=== PATIENT | female | born 1995 | race Caucasian/White ===

== ENCOUNTER → 2020-07-26 | Outpatient (CLI) | payer BC ==
[2020-07-26 17:33] LABS: CLUE CELLS NOT OBSERVED (Not Observd)
== END ==
LOC: LAB 17:23
PROVIDERS: Physician Assistant
DX: Z20.2 Contact with and (suspected) exposure to infections with a predominantly sexual mode of transmission (principal)
CPT/HCPCS: Q0111

== ENCOUNTER 2020-11-05 13:01 | Emergency (ER) | payer SELFPAY ==
[2020-11-05] MEDS ORDERED: NORCO 325 MG-51 TA1 PO (13:41)
[2020-11-05] MEDS ORDERED: ZOFRAN ODT4 MG PO (13:41)
[2020-11-05] MEDS ORDERED: MUCINEX 60600 MG/TA1 PO (13:41)
[2020-11-05 14:42] VITALS: BP 122/84
== END 2020-11-05 14:11 | disposition home or self-care (01) ==
LOC: ED 13:01
DX: J06.9 Acute upper respiratory infection, unspecified (principal); F17.210 Nicotine dependence, cigarettes, uncomplicated

== ENCOUNTER → 2021-02-01 | Outpatient (CLI) | payer OTHER ==
[~2021-02-01] MED LIST: MUCINEX 60600 MG/TA1 PO; NORCO 325 MG-51 TA1 PO; ZOFRAN ODT4 MG PO
[2021-02-01 10:19] LABS: EOS # 0.1 (0.04-0.40); EOS % 1.1 % (1.0-5.0); HEMATOCRIT 45.7 % (37.0-47.0); HEMOGLOBIN 14.9 g/dL (12.5-16.0); LYMPH# 2.3 (1.50-4.00); MEAN CELL VOLUME 93 fl (78-100); MEAN CORPUSCULAR HEMOGLOBIN 30 pg (27-31); MEAN CORPUSCULAR HGB CONC 33 g/dL (33-37); MEAN PLATELET VOLUME 10.3 fl (7.4-10.4); MONO # 0.5 (0.20-0.80); NEU # 4.4 (1.40-6.50); PLATELET COUNT 266 K/mm3 (130-400); RED BLOOD COUNT 4.93 M/mm3 (4.10-5.30); RED CELL DISTRIBUTION WIDTH 12.6 % (11.5-14.5); WHITE BLOOD COUNT 7.3 K/mm3 (4.8-10.8)
[2021-02-01 10:33] LABS: ALBUMIN 4.6 g/dL (3.5-5.0); POTASSIUM 4.5 mmol/L (3.5-5.1)
[2021-02-01 10:35] LABS: CALCIUM 9.5 mg/dL (8.3-10.5)
[2021-02-01 10:36] LABS: TOTAL PROTEIN 7.7 g/dL (6.4-8.3)
[2021-02-01 10:38] LABS: TOTAL BILIRUBIN 0.4 mg/dL (0.2-1.2)
== END ==
LOC: LAB 09:54
PROVIDERS: Physician Assistant
DX: R55 Syncope and collapse (principal)

== ENCOUNTER → 2021-02-13 | Outpatient (CLI) | payer OTHER | LOC: RAD 09:11 | DX: R55 Syncope and collapse (principal) | CPT/HCPCS: A9585 ==